=== PATIENT | female | born 2000 | race Caucasian/White ===

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

== ENCOUNTER 2023-03-23 08:00 | Outpatient (CLI) | payer OTHER ==
[2023-03-23 15:49] LABS: BILIRUBIN,URINE NEGATIVE (NEGATIVE); GLUCOSE, URINE (UA) NEGATIVE (NEGATIVE); KETONES,URINE (UA) NEGATIVE (NEGATIVE); LEUKOCYTE ESTERASE, URINE NEGATIVE (NEGATIVE); NITRITE,URINE NEGATIVE (NEGATIVE); OCCULT BLOOD,URINE NEGATIVE (NEGATIVE); PH,URINE 5.5 PH (5.0-7.5); PROTEIN,URINE NEGATIVE (NEGATIVE); UROBILINOGEN,URINE 0.2 (NORMAL) E.U./dL (NORMAL)
[2023-03-23 15:50] LABS: CLARITY,URINE CLOUDY (CLEAR)
[2023-03-23 16:01] LABS: AMORPHOUS SEDIMENT,UR Marked /LPF; BACTERIA,URINE Rare /HPF (None Seen); RBC,URINE None Seen /HPF (0-5); SQUAMOUS EPITHELIAL CELL,UR RARE Squamous (<= Few); WBC,URINE 0-3 /HPF (0-5)
== END 2023-03-23 23:59 | disposition home or self-care (01) ==
LOC: LAB.WC 08:00
PROVIDERS: ATTEND Nurse Practitioner
DX: Z34.90 Encounter for supervision of normal pregnancy, unspecified, unspecified trimester (principal)
CPT/HCPCS: 81001; 87086

== ENCOUNTER 2023-04-10 19:51 | Emergency (ER) | payer OTHER ==
--- NOTE | 2023-04-10 21:08 | ED Physician Documentation ---
History of Present Illness - Stated complaint Stated Complaint: FEMALE - Chief complaint Chief Complaint: General - History obtained from History obtained from: Patient - Additonal information Additional information: The patient comes to the emergency department chief complaint of vaginal bleeding that started today. The patient is 15 weeks , approximately. The patient states it was in the afternoon and that she felt as though she may have to urinate. However, when she went to use the toilet, she noticed that she was having heavy bright red vaginal bleeding. She did not notice any clots or tissue/sac. She states that she soaked 1 pad and that she has another 1 on now and thinks that it is probably getting ready full 2. The patient states she had vague sense of cramping low abdomen/pelvis throughout the day, and has felt more fatigued than usual. Otherwise, she feels as though her has been going fairly well. She had a little bit of spotting a few weeks ago but that resolved quickly on its own. She does have an OB specialist that she has not yet seen, and has an ultrasound scheduled in about a week. She has not yet had any other imaging. The patient does have a history of a miscarriage once before. She states she was about a month at that time and has not had any other pregnancies besides that one. She does note that she and her significant other had intercourse about 3 hours before the bleeding started. However, she did not notice any bleeding right after intercourse. No intensification of the pain. PD PAST MEDICAL HISTORY - Past Surgical History Past Surgical History: No - Present Medications Home Medications: Ambulatory Orders Medication Instructions Recorded Confirmed Azithromycin [Zithromax] 250 mg PO DAILY #6 tablet 11/13/17 - Allergies Allergies/Adverse Reactions: Allergies Allergy/AdvReac Type Severity Reaction Status Date / Time cillins Allergy Mild Rash Uncoded 11/13/17 16:26 - Social History Does the pt smoke?: No Smoking Status: Never smoker Does the pt drink ETOH?: No Does the pt have substance abuse?: No - Immunizations Immunizations are current?: Yes - POLST Patient has POLST: No PD ED PE NORMAL - Vitals Vital signs reviewed: Yes - General General: Alert and oriented X 3, No acute distress, Well developed/nourished - HEENT HEENT: Atraumatic, PERRL, EOMI, Moist mucous membranes - Neck Neck: Supple, no meningeal sign - Cardiac Cardiac: RRR, No murmur, Strong equal pulses - Respiratory Respiratory: No respiratory distress, Clear bilaterally - Abdomen Abdomen: Soft, Other (Mild distention, mild tenderness over low abdomen, worst in suprapubic area. 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 Moderate amount of red blood without clots in vaginal canal. Cervix is firm and os is closed. No uterine or adnexal tenderness. No products of conception in the os or vaginal canal.) - Derm Derm: Warm and dry - Extremities Extremities: No deformity - Neuro Neuro: Alert and oriented X 3 - Psych Psych: Normal mood, Normal affect Results - Vitals Vitals: Oxygen O2 Source Room air - Labs Labs: Laboratory Tests 04/10/23 04/10/23 20:51 21:28 Beta HCG, Quant 61677.5 Urine Color DARK YELLOW Urine Clarity HAZY Urine pH 5.5 Ur Specific [place] 1.020 Urine Protein 30 H Urine Glucose (UA) NEGATIVE Urine Ketones NEGATIVE Urine Occult Blood LARGE H Urine Nitrite NEGATIVE Urine Bilirubin NEGATIVE Urine Urobilinogen 0.2 (NORMAL) Ur Leukocyte Esterase NEGATIVE Urine RBC TNTC H Urine WBC 4-5 Ur Squamous Epith Cells RARE Squamous Urine Bacteria None Seen Ur Microscopic Review INDICATED Urine Culture Comments NOT INDICATED - Rads (name of study) OB US Relevant Findings:: Final report received, See rad report (Viable intrauterine , 14 weeks.) PD Medical Decision Making - ED course Complexity details: reviewed results, re-evaluated patient, considered differential, d/w patient, d/w family ED course: The patient was worked up with quantitative hCG, urinalysis, and OB ultrasound. The ultrasound showed a 14-week 1 day viable intrauterine and a rupturing corpus luteum cyst. No other concerning findings were noted. I discussed with the patient that although it is still possible that she could be in the early end of a miscarriage, the rest of her findings look good and at this point, only time will tell. Her quantitative hCG was 33,625. She does have an ultrasound scheduled in about a week and I have advised her that if she does not notice any improvement in her bleeding at all over the next few days, she should call her OB office for guidance. We have discussed the usual indications for return. Departure - Departure Disposition: Home, Self Care Clinical Impression: Threatened Condition: Stable Instructions: ED Miscarriage Poss Comments: Your ultrasound and hormones look great tonight. You do have a rupturing corpus luteum cyst, which is an ovarian cyst related to the . While this could cause some vaginal bleeding, it may not explain all of the bleeding you are having. At this point in time, your baby looks great and appears to be about 14 weeks size. Most likely, the bleeding will subside on its own, but if you do not notice any improvement at all After the next 3 days, or if you notice that it seems to be getting worse, you should call your OB office and find out what they would like you to do. You should plan to follow- up as scheduled for your official ultrasound on the . At that time, they may also repeat hormone level if you are continuing to bleed. Forms: PCP List Discharge Date/Time: 04/10/23 21:57
[2023-04-10 21:33] LABS: BILIRUBIN,URINE NEGATIVE (NEGATIVE); GLUCOSE, URINE (UA) NEGATIVE (NEGATIVE); KETONES,URINE (UA) NEGATIVE (NEGATIVE); LEUKOCYTE ESTERASE, URINE NEGATIVE (NEGATIVE); NITRITE,URINE NEGATIVE (NEGATIVE); OCCULT BLOOD,URINE LARGE (NEGATIVE); PH,URINE 5.5 PH (5.0-7.5); PROTEIN,URINE 30 mg/dL (NEGATIVE); UROBILINOGEN,URINE 0.2 (NORMAL) E.U./dL (NORMAL)
[2023-04-10 21:34] LABS: CLARITY,URINE HAZY (CLEAR)
[2023-04-10 21:43] LABS: BACTERIA,URINE None Seen /HPF (None Seen); RBC,URINE TNTC /HPF (0-5); SQUAMOUS EPITHELIAL CELL,UR RARE Squamous (<= Few)
[2023-04-10 22:02] VITALS: BP 138/88
--- NOTE | 2023-04-10 22:43 | Ultrasound Report ---
PROCEDURE: OB 14+ Weeks INDICATIONS: 15 wks preg, vag bleed OUTSIDE/PRIOR DATING DATA: Last menstrual period (LMP): 12/20/2022. LMP-based estimated date of delivery (EFRAIN): 09/26/2023. First dating scan (date and location): 04/10/2023. Estimated date of delivery (EFRAIN) from first dating scan: 10/08/2022. TECHNIQUE: Real-time scanning was performed of the fetus, with image documentation and biometric measurements. COMPARISON: None. FINDINGS: General: A single living intrauterine gestation is present. Presentation: Variable Placenta: Placental position is anterior. Amniotic fluid : Appears within normal limits for gestational age. heart rate: 153 beats per minute. Maternal cervical canal: 4.4 cm long; normal length is 2.5 cm or more. biometrics: Biparietal diameter: 2.6 cm, 14 weeks 4 days Head circumference: 10.2 cm, 14 weeks 5 days Abdominal circumference: 17.1 cm, 15 weeks 5 days Femur length: 1.3 cm, 15 weeks 5 days Estimated gestational age from LMP: 15 weeks 6 days. Composite gestational age from present scan: 14 weeks 1 day Estimated weight and percentile: 84 g Measurement variability for biometric dating: +/- 10 days from 12-20 weeks gestation, +/- 2 weeks fro m 20-30 weeks gestation, +/- 3 weeks for 30 weeks gestation or later. IMPRESSION: 1. Single living intrauterine with composite gestational age of 14 weeks 1 day correspondin g to an estimated delivery date of 10/08/2023, discordant with patient's dates by LMP. Reviewed by: Moe Damon MD on 04/10/2023 10:41 PM PDT Approved by: Moe Damon MD on 04/10/2023 10:41 PM PDT Station ID: [id number]
== END 2023-04-10 21:57 | disposition home or self-care (01) ==
LOC: ED 19:51
DX: O20.0 Threatened abortion (principal); Z3A.14 14 weeks gestation of pregnancy
CPT/HCPCS: 36415; 81001; 81003; 84702; 87086; 99283; 99284

== ENCOUNTER 2023-04-17 08:00 | Outpatient (CLI) | payer OTHER ==
[2023-04-17 20:41] LABS: CHLAMYDIA TRACHOMATIS DNA NEGATIVE (NEGATIVE); NEISSERIA GONORRHOEAE DNA NEGATIVE (NEGATIVE); TRICHOMONAS VAGINALIS DNA NEGATIVE (NEGATIVE)
== END 2023-04-17 23:58 | disposition home or self-care (01) ==
LOC: LAB.WC 08:00
PROVIDERS: ATTEND Obstetrics & Gynecology
DX: Z11.3 Encounter for screening for infections with a predominantly sexual mode of transmission (principal)
CPT/HCPCS: 87491; 87591; 87661

== ENCOUNTER 2023-04-17 13:38 | Outpatient (CLI) | payer OTHER ==
[2023-04-17 13:56] LABS: BASOPHILS % (AUTO) 0.3 %; EOSINOPHILS # (AUTO) 0.2 10^3/uL (0.0-0.7); EOSINOPHILS % (AUTO) 1.9 %; HCT - HEMATOCRIT 36.5 % (37.0-47.0); HGB - HEMOGLOBIN 12.6 g/dL (12.0-16.0); LYMPHOCYTES # (AUTO) 2.1 10^3/uL (1.5-3.5); LYMPHOCYTES % (AUTO) 22.7 %; MEAN CORPUSCULAR HEMOGLOBIN 29.5 pg (27.0-31.0); MEAN CORPUSCULAR HGB CONC 34.5 g/dL (32.0-36.0); MEAN CORPUSCULAR VOLUME 85.5 fL (81.0-99.0); MONOCYTES # (AUTO) 0.5 10^3/uL (0.0-1.0); MONOCYTES % (AUTO) 5.4 %; NEUTROPHILS # (AUTO) 6.5 10^3/uL (1.5-6.6); NEUTROPHILS % (AUTO) 69.3 %; PLT - PLATELET COUNT 226 10^3/uL (130-450); RED BLOOD COUNT 4.27 10^6/uL (4.20-5.40); RED CELL DISTRIBUTION WIDTH 12.8 % (12.0-15.0); WHITE BLOOD COUNT 9.4 x10^3/uL (4.8-10.8)
[2023-04-17 13:59] LABS: BILIRUBIN,URINE NEGATIVE (NEGATIVE); GLUCOSE, URINE (UA) NEGATIVE (NEGATIVE); KETONES,URINE (UA) NEGATIVE (NEGATIVE); LEUKOCYTE ESTERASE, URINE NEGATIVE (NEGATIVE); NITRITE,URINE NEGATIVE (NEGATIVE); OCCULT BLOOD,URINE NEGATIVE (NEGATIVE); PH,URINE 6.5 PH (5.0-7.5); PROTEIN,URINE NEGATIVE (NEGATIVE); UROBILINOGEN,URINE 0.2 (NORMAL) E.U./dL (NORMAL)
[2023-04-17 14:47] LABS: BACTERIA,URINE Moderate /HPF (None Seen); CLARITY,URINE CLEAR (CLEAR); RBC,URINE 0-5 /HPF (0-5); SQUAMOUS EPITHELIAL CELL,UR FEW Squamous (<= Few); WBC,URINE 0-3 /HPF (0-5)
[2023-04-18 03:09] LABS: HBsAG SCREEN Negative (Negative)
[2023-04-18 07:10] LABS: HIV SCREEN 4TH GENERATION Non Reactive (Non Reactive)
[2023-04-18 08:09] LABS: HCV AB Non Reactive (Non Reactive)
[2023-04-18 09:09] LABS: VARICELLA-ZOSTER AB IGG 754 index (Immune >165)
[2023-04-19 08:11] LABS: RPR Non Reactive (Non Reactive)
== END 2023-04-17 13:39 | disposition home or self-care (01) ==
LOC: LAB 13:38
PROVIDERS: ATTEND Nurse Practitioner
DX: Z34.90 Encounter for supervision of normal pregnancy, unspecified, unspecified trimester (principal)
CPT/HCPCS: 36415; 81001; 85025; 86592; 86762; 86787; 86803; 86850; 86900; 86901; 87086; 87340; 87389; 87491; 87591; 87661

== ENCOUNTER 2023-05-15 14:53 | Outpatient (CLI) | payer OTHER ==
--- NOTE | 2023-05-15 17:15 | Ultrasound Report ---
PROCEDURE: OB Detailed Eval INDICATIONS: OBESITY OUTSIDE/PRIOR DATING DATA: Last menstrual period (LMP): 12/20/2022. LMP-based estimated date of delivery (EFRAIN): 05/19/2024. First dating scan (date and location): 04/10/2023. Estimated date of delivery (EFRAIN) from first dating scan: 10/08/2022. The below data below was generated using the working EFRAIN of 10/08/2022 TECHNIQUE: Real-time scanning was performed of the fetus, with image documentation and biometric measurements. Endovaginal scanning: None COMPARISON: 04/10/2023 FINDINGS: General: A single living intrauterine gestation is present. Presentation: Breech Placenta: Placental position is anterior, without previa. Additionally, there is a crescentic hypoe chogenicity in the lower uterine segment measuring 7.0 x 1.2 x 4.0 cm, not well Amniotic fluid index: 11.0 cm, 17 percentile for gestational age. heart rate: 100 beats per minute. Maternal cervical canal: 4.3 cm long; normal length is 2.5 cm or more. biometrics: Biparietal diameter: 4.5 cm, 19 week 3 day Head circumference: 16.9 cm, 19 week 3 day Abdominal circumference: 14.2 cm, 19 week 4 day Femur length: 3.0 cm, 19 week 3 day Estimated gestational age from initial scan: 19 week 1 day Composite gestational age from present scan: 19 week 3 day Estimated weight and percentile: 294 g, 64th percentile Measurement variability in biometric dating: +/- 10 days from 12-20 weeks gestation, +/- 2 weeks from 20-30 weeks gestation, +/- 3 weeks at 30 weeks gestation or later. Anatomic survey: Neuro: Ventricles are normal at less than 10 mm. Cisterna magna is normal at 3-11 mm. Cerebellum i s normal in size and morphology. Nuchal skin fold: Normal at less than 6 mm between 14 and 20 weeks gestational age. Face: Not well seen Spine: No evidence for spina bifida. Heart: 4 chamber view and outflow tracts not well seen Diaphragm: Diaphragm is intact. Stomach: Left-sided stomach is present. Kidneys: No hydronephrosis. Normal is less than 5 mm in 2nd trimester, less than 7 mm in 3rd trimester. Cord: 3 vessel cord has orthotopic insertion. Bladder: Normal in size. Extremities: All 4 extremities are visualized. IMPRESSION: Single live intrauterine consistent with 19 week 3 day gestation by current ultrasound. nose and lips, four-chamber heart and ventricular outflow tracts are not well depicted currentl y. Possible subchorionic bleed noted in the posterior lower uterine segment measuring 7.0 x 1.2 x 4.0 cm , not well detected. Consider short-term interval follow-up to reassess Reviewed by: Ziyad Saxena MD on 05/15/2023 4:14 PM [facility] Approved by: Ziyad Saxena MD on 05/15/2023 4:14 PM [facility] Station ID: [id number]
== END 2023-05-15 14:54 | disposition home or self-care (01) ==
LOC: DI 14:53
PROVIDERS: ATTEND Obstetrics & Gynecology
DX: O99.212 Obesity complicating pregnancy, second trimester (principal); Z3A.19 19 weeks gestation of pregnancy

== ENCOUNTER 2023-06-26 13:16 | Outpatient (CLI) | payer BC ==
[2023-06-26 20:10] LABS: HCT - HEMATOCRIT 39.1 % (37.0-47.0); HGB - HEMOGLOBIN 12.9 g/dL (12.0-16.0); MEAN CORPUSCULAR HEMOGLOBIN 29.4 pg (27.0-31.0); MEAN CORPUSCULAR VOLUME 89.1 fL (81.0-99.0); MEAN PLATELET VOLUME 10.6 fL (7.9-10.8); RED BLOOD COUNT 4.39 10^6/uL (4.20-5.40); RED CELL DISTRIBUTION WIDTH 12.7 % (12.0-15.0); WHITE BLOOD COUNT 9.8 x10^3/uL (4.8-10.8)
== END 2023-06-26 13:17 | disposition home or self-care (01) ==
LOC: LAB.S 13:16
PROVIDERS: ATTEND Obstetrics & Gynecology
DX: O99.212 Obesity complicating pregnancy, second trimester (principal)
CPT/HCPCS: 36415; 82950; 85027

== ENCOUNTER 2023-07-17 13:16 | Outpatient (CLI) | payer OTHER ==
--- NOTE | 2023-07-17 15:49 | Ultrasound Report ---
PROCEDURE: OB F/U or Repeat INDICATIONS: OBESITY COMPLICATING OUTSIDE/PRIOR DATING DATA: Last menstrual period (LMP): 12/20/2022. LMP-based estimated date of delivery (EFRAIN): 09/26/2023. First dating scan (date and location): 04/10/2023. Estimated date of delivery (EFRAIN) from first dating scan: 10/08/2022. The below data below was generated using the working EFRAIN of 10/08/2022 TECHNIQUE: Ultrasound of the gravid uterus was performed and recorded. COMPARISON: 05/15/2023 FINDINGS: General: A single live intrauterine gestation is present. Presentation: Cephalic Placenta: Placental position is anterior without previa. Amniotic fluid index: 17.5 cm, 72 percentile for gestational age. heart rate: 150 beats per minute. Maternal cervical canal: 4.1 cm long; normal length is 2.5 cm or more. biometrics: Biparietal diameter: 7.5 cm, 30 week 0 day Head circumference: 27.3 cm, 29 week 6 day Abdominal circumference: 25.5 cm, 29 week 5 day Femur length: 5.4 cm, 28 week 3 day Estimated gestational age by working dates: 28 week 1 day Composite gestational age by current ultrasound: 29 week 4 day Estimated weight and percentile: 1375 g, 82 percentile Measurement variability in biometric dating: +/- 10 days from 12-20 weeks gestation, +/- 2 weeks from 20-30 weeks gestation, +/- 3 weeks at 30 weeks gestation or more. Other: face, nose and lips, orbits, cardiac 4 chamber and outflow views are all normal IMPRESSION: Single live intrauterine consistent with 29 week 4 day gestation by current ultrasound Femur length is slightly delayed at 28 week 3 day nose and lips,. Heart and ventricular outflow tracts are well seen and normal. Normal anatomic survey completed. Possible subchorionic bleed has resolved Reviewed by: Ziyad Saxena MD on 07/17/2023 2:48 PM [facility] Approved by: Ziyad Saxena MD on 07/17/2023 2:48 PM [facility] Station ID: [id number]
== END 2023-07-17 13:17 | disposition home or self-care (01) ==
LOC: DI 13:16
PROVIDERS: ATTEND Obstetrics & Gynecology
DX: O99.213 Obesity complicating pregnancy, third trimester (principal); Z3A.29 29 weeks gestation of pregnancy

== ENCOUNTER 2023-08-14 16:27 | Outpatient (CLI) | payer BC, OTHER ==
--- NOTE | 2023-08-15 10:55 | Ultrasound Report ---
PROCEDURE: OB F/U or Repeat INDICATIONS: OBESITY OUTSIDE/PRIOR DATING DATA: Last menstrual period (LMP): 12/20/2022. LMP-based estimated date of delivery (EFRAIN): 09/26/2023. First dating scan (date and location): 04/10/2023. Estimated date of delivery (EFRAIN) from first dating scan: 10/08/2023. The below data below was generated using the ultrasound EFRAIN of 10/08/2023 TECHNIQUE: Real-time scanning was performed of the fetus, with image documentation and biometric measurements. Endovaginal scanning: Not performed. COMPARISON: None. FINDINGS: General: A single living intrauterine gestation is present. Presentation: Vertex Placenta: Placental position is anterior, without previa. Amniotic fluid index: 16.9 cm, within normal limits for gestational age. heart rate: 140 beats per minute. Maternal cervical canal: 3.5 cm long; normal length is 2.5 cm or more. biometrics: Biparietal diameter: 8.4 cm, 33 weeks 6 days, 87th percentile. Head circumference: 31.59 cm, 35 weeks 3 days, 92 percentile. Abdominal circumference: 30.16 cm, 34 weeks 1 day, 93.5 percentile. Femur length: 6.28 cm, 32 weeks 4 days, 47th percentile. Estimated gestational age from initial scan: 32 weeks 1 day Composite gestational age from present scan: 34 weeks 0 days Estimated weight and percentile: 2274 g, 88th percentile Measurement variability in biometric dating: +/- 10 days from 12-20 weeks gestation, +/- 2 weeks from 20-30 weeks gestation, +/- 3 weeks at 30 weeks gestation or more. Other: Not applicable. IMPRESSION: Single living intrauterine at 32 weeks 1 day, EFRAIN of 10/08/2023. Estimated weight of 2234 g, 80th percentile. biometrics as above. Reviewed by: Cas Morales on 08/15/2023 10:54 AM [facility] Approved by: Cas Morales on 08/15/2023 10:54 AM [facility] Station ID: [id number]
== END 2023-08-14 16:28 | disposition home or self-care (01) ==
LOC: DI 16:27
PROVIDERS: ATTEND Obstetrics & Gynecology
DX: O99.212 Obesity complicating pregnancy, second trimester (principal); Z3A.32 32 weeks gestation of pregnancy

== ENCOUNTER 2023-09-04 10:49 | Outpatient (CLI) | payer BC ==
[2023-09-04 11:25] VITALS: BP 110/66
--- NOTE | 2023-09-04 11:29 | PROCEDURE REPORT ---
- HPI Diagnosis/Indication for NST: Other (obesity) Current EDU 10/08/23 Gestation 35 Weeks and 1 Days 1 Para 0 Vital Signs Temperature 98.2 F 09/04/23 11:06 Heart Rate 120 H 09/04/23 11:06 Respiratory Rate 20 09/04/23 11:06 Blood Pressure 110/66 09/04/23 11:06 Temperature 98.2 F 09/04/23 11:06 Heart Rate 120 H 09/04/23 11:06 Respiratory Rate 20 09/04/23 11:06 Blood Pressure 110/66 09/04/23 11:06 O2 Saturation If not protocol: Oxygen Flow, liters/minute - NST Procedure NST Procedure Start Date 09/04/23 Start Time 10:57 Stop Time 11:25 Vibroacoustic Stimulation Used No Patient States Movement Yes 35+1 weeks, NST for obesity 145, moderate variability, +accels, no decels Reactive NST
== END 2023-09-04 11:35 | disposition home or self-care (01) ==
LOC: WFO 10:49 → FBP 10:52 → WFO 11:35
PROVIDERS: ATTEND Obstetrics & Gynecology Obstetrics
DX: O99.213 Obesity complicating pregnancy, third trimester (principal); Z3A.35 35 weeks gestation of pregnancy
CPT/HCPCS: 59025

== ENCOUNTER 2023-09-10 11:37 | Outpatient (CLI) | payer BC ==
[2023-09-10 11:57] VITALS: O2SAT 99
--- NOTE | 2023-09-10 12:07 | PROCEDURE REPORT ---
- HPI Diagnosis/Indication for NST: Other (obesity) Vital Signs Temperature 97.7 F 09/10/23 11:56 Heart Rate 108 H 09/10/23 11:56 Respiratory Rate 17 09/10/23 11:56 O2 Saturation 99 09/10/23 11:56 Temperature 97.7 F 09/10/23 11:56 Heart Rate 108 H 09/10/23 11:56 Respiratory Rate 17 09/10/23 11:56 Blood Pressure O2 Saturation 99 09/10/23 11:56 If not protocol: Oxygen Flow, liters/minute - NST Procedure NST Procedure Start Time 10:57 Stop Time 11:25 - Results and Plan Findings/Impression: 140 mod tyler + A cells no D cells reactive Plan: ok to D/C home, continue scheduled ANC, precautions and instructions reviewed
== END 2023-09-10 12:15 | disposition home or self-care (01) ==
LOC: WFO 11:37 → FBP 11:48 → WFO 12:15
PROVIDERS: ATTEND Obstetrics & Gynecology
DX: O99.210 Obesity complicating pregnancy, unspecified trimester (principal); Z3A.00 Weeks of gestation of pregnancy not specified
CPT/HCPCS: 59025

== ENCOUNTER 2023-09-14 09:06 | Outpatient (CLI) | payer BC ==
--- NOTE | 2023-09-14 15:36 | Ultrasound Report ---
PROCEDURE: OB F/U or Repeat INDICATIONS: OBSEITY OUTSIDE/PRIOR DATING DATA: Last menstrual period (LMP): 12/20/2022. LMP-based estimated date of delivery (EFRAIN): 09/26/2023. First dating scan (date and location): 04/10/2023. Estimated date of delivery (EFRAIN) from first dating scan: 10/08/2023. The below data below was generated using the ultrasound EFRAIN of 10/08/2023 TECHNIQUE: Real-time scanning was performed of the fetus, with image documentation and biometric measurements. Endovaginal scanning: Not performed. COMPARISON: OB ultrasound 08/14/2023. FINDINGS: General: A single living intrauterine gestation is present. Presentation: Vertex Placenta: Placental position is anterior, without previa. Amniotic fluid index: 11.7 cm, within normal limits for gestational age. heart rate: 129 beats per minute. Maternal cervical canal: 3.9 cm long; normal length is 2.5 cm or more. biometrics: Biparietal diameter: 9.24 cm, 37 weeks 4 days, 85th percentile Head circumference: 33.9 cm, 39 weeks 0 days, 79th percentile Abdominal circumference: 34.7 cm, 38 weeks 4 days, 97th percentile Femur length: 7.14 cm, 36 weeks 4 days, 47th percentile Estimated gestational age from initial scan: 36 weeks 4 days Composite gestational age from present scan: 38 weeks 0 days Estimated weight and percentile: 3386 g, 89th percentile Measurement variability in biometric dating: +/- 10 days from 12-20 weeks gestation, +/- 2 weeks from 20-30 weeks gestation, +/- 3 weeks at 30 weeks gestation or more. Other: Not applicable. IMPRESSION: 1.Single live intrauterine with interval growth. 2.Estimated weight is 3386 g, 89th percentile for gestational age. Abdominal circumference is a t the 97th percentile for gestational age. 3.Amniotic fluid index is normal at 11.7 cm. Reviewed by: Toro Vela MD on 09/14/2023 3:35 PM PST Approved by: Toro Vela MD on 09/14/2023 3:35 PM PST Station ID: [id number]
== END 2023-09-14 09:07 | disposition home or self-care (01) ==
LOC: DI 09:06
PROVIDERS: ATTEND Obstetrics & Gynecology
DX: O99.213 Obesity complicating pregnancy, third trimester (principal); Z3A.38 38 weeks gestation of pregnancy

== ENCOUNTER 2023-09-18 10:54 | Outpatient (CLI) | payer BC ==
[2023-09-18 11:15] VITALS: BP 112/69
--- NOTE | 2023-09-18 11:30 | PROCEDURE REPORT ---
- HPI Diagnosis/Indication for NST: Other (obesity in ) Vital Signs Temperature 97.9 F 09/18/23 11:08 Temperature 97.9 F 09/18/23 11:12 Heart Rate 109 H 09/18/23 11:12 Respiratory Rate 15 09/18/23 11:12 Blood Pressure 112/69 09/18/23 11:12 O2 Saturation If not protocol: Oxygen Flow, liters/minute - NST Procedure NST Procedure Start Time 11:43 Stop Time 12:08 NST reviewed in real time. baseline 150. moderate variability. acels. no decels. - Results and Plan Findings/Impression: reactive NST Plan: care as scheduled.
== END 2023-09-18 11:40 | disposition home or self-care (01) ==
LOC: WFO 10:54 → FBP 10:58 → WFO 11:40
PROVIDERS: ATTEND Obstetrics & Gynecology
DX: O99.213 Obesity complicating pregnancy, third trimester (principal); Z3A.00 Weeks of gestation of pregnancy not specified
CPT/HCPCS: 59025

== ENCOUNTER 2023-09-20 08:00 | Outpatient (CLI) | payer BC | END 2023-09-20 08:01 | disposition home or self-care (01) | LOC: LAB.WC 08:00 | PROVIDERS: ATTEND Obstetrics & Gynecology | DX: O09.93 Supervision of high risk pregnancy, unspecified, third trimester (principal) | CPT/HCPCS: 87081; 87181; 87797 ==

== ENCOUNTER 2023-09-25 10:56 | Outpatient (CLI) | payer BC ==
[2023-09-25 11:14] VITALS: BP 105/74
--- NOTE | 2023-09-25 12:37 | PROCEDURE REPORT ---
- HPI Current EDU 10/08/23 Gestation 38 Weeks and 1 Days 2 Para 0 Vital Signs Temperature 98.2 F 09/25/23 11:03 Heart Rate 109 H 09/25/23 11:03 Respiratory Rate 18 09/25/23 11:03 Blood Pressure 105/74 09/25/23 11:03 Temperature 98.2 F 09/25/23 11:03 Heart Rate 109 H 09/25/23 11:03 Respiratory Rate 18 09/25/23 11:03 Blood Pressure 105/74 09/25/23 11:03 O2 Saturation If not protocol: Oxygen Flow, liters/minute - NST Procedure NST Procedure Start Date 09/25/23 Start Time 11:07 Stop Time 11:30 Vibroacoustic Stimulation Used No Patient States Movement Yes - Results and Plan Plan: Patient is a 23-year-old -0-1-0 at 38 weeks 1 day gestation here for scheduled NST. NST Performed 09/25/2023 NST Read 09/25/2023 FHT: 135 bpm baseline, moderate variability, accelerations present, no decelerations. Reactive NST [place]: Quiescent Diagnosis 38 weeks gestation Obesity complicating Continue with scheduled NST.
== END 2023-09-25 11:40 | disposition home or self-care (01) ==
LOC: WFO 10:56 → FBP 10:59 → WFO 11:40
PROVIDERS: ATTEND Obstetrics & Gynecology
DX: O99.213 Obesity complicating pregnancy, third trimester (principal); Z3A.38 38 weeks gestation of pregnancy
CPT/HCPCS: 59025

== ENCOUNTER 2023-10-02 10:54 | Inpatient (IN) | payer BC ==
[2023-10-02] MEDS ORDERED: OXYTOCIN 10 UNIT/ML VIAL IM PRN (12:18)
[2023-10-02] MEDS ORDERED: hydrALAZINE INJ 20 MG/ML VIAL IVP PRN ×2 (12:18)
[2023-10-02] MEDS ORDERED: TRANEXAMIC ACID IN NACL 1,000 MG/100 ML BAG IV PRN (12:18)
[2023-10-02] MEDS ORDERED: lidocaine 1% 20 ML MDV ID PRN (12:18)
[2023-10-02] MEDS ORDERED: NIFEdipine 10 MG CAPSULE PO PRN (12:18)
[2023-10-02] MEDS ORDERED: miSOPROStoL 200 MCG TABLET PR PRN (12:18)
[2023-10-02] MEDS ORDERED: miSOPROStoL 200 MCG TABLET BC PRN (12:18)
[2023-10-02] MEDS ORDERED: LABETALOL 20 MG/4 ML SYRINGE IVP PRN ×3 (12:18)
[2023-10-02] MEDS ORDERED: SODIUM CHLORIDE FLUSH 0.9% 10 ML SYRINGE IVP PRN (12:18)
[2023-10-02] MEDS ORDERED: fentaNYL 100 MCG/2 ML VIAL IVP PRN (12:18)
[2023-10-02] MEDS ORDERED: CARBOPROST TROMETHAMINE 250 MCG/ML AMP IM PRN (12:18)
[2023-10-02] MEDS ORDERED: ceFAZolin (2G) 2 GM in SODIUM CHLORIDE 0.9% MINIBAG 100 ML IV ONE (12:18)
[2023-10-02] MEDS ORDERED: TERBUTALINE 1 MG/ML VIAL SUBQ PRN (12:18)
[2023-10-02] MEDS ORDERED: OXYTOCIN/SODIUM CHLORIDE 500 ML IV PRN (12:18)
[2023-10-02] MEDS ORDERED: METHYLERGONOVINE 0.2 MG/ML VIAL IM PRN (12:18)
[2023-10-02 12:20] LABS: BASOPHILS % (AUTO) 0.3 %; EOSINOPHILS # (AUTO) 0.1 10^3/uL (0.0-0.7); EOSINOPHILS % (AUTO) 1.3 %; HCT - HEMATOCRIT 37.6 % (37.0-47.0); HGB - HEMOGLOBIN 12.7 g/dL (12.0-16.0); LYMPHOCYTES % (AUTO) 18.7 %; MEAN CORPUSCULAR HEMOGLOBIN 29.4 pg (27.0-31.0); MEAN CORPUSCULAR HGB CONC 33.8 g/dL (32.0-36.0); MONOCYTES # (AUTO) 0.8 10^3/uL (0.0-1.0); NEUTROPHILS # (AUTO) 7.7 10^3/uL (1.5-6.6); NEUTROPHILS % (AUTO) 71.8 %; PLT - PLATELET COUNT 250 10^3/uL (130-450); RED BLOOD COUNT 4.32 10^6/uL (4.20-5.40); RED CELL DISTRIBUTION WIDTH 13.5 % (12.0-15.0); WHITE BLOOD COUNT 10.7 x10^3/uL (4.8-10.8)
[2023-10-02] MEDS: miSOPROStoL 100 MCG TABLET VG SCH ×3 (12:48→20:50)
--- NOTE | 2023-10-02 15:31 | ANESTHESIA ---
Pre-Anesthesia VS, & Labs - Diagnosis labor induction - Procedure labor epidural Vital Signs: Temp Pulse Resp BP Pulse Ox O2 Flow Rate 36.6 C 109 H 16 98/79 10/02/23 12:59 10/02/23 12:59 10/02/23 12:59 10/02/23 12:59 Height: 5 ft 1 in Weight (kg): 117.027 kg Body Mass Index: 48.7 BMI Classification: Morbidly Obese - NPO Other - Is Patient ?: Yes - Lab Results Current Lab Results: Laboratory Tests 10/02/23 11:50: WBC 10.7, RBC 4.32, Hgb 12.7, Hct 37.6, MCV 87.0, MCH 29.4, MCHC 33.8, RDW 13.5, Plt Count 250, MPV 11.0 H, Neut # (Auto) 7.7 H, Lymph # (Auto) 2.0, Glenn # (Auto) 0.8, Eos # (Auto) 0.1, Baso # (Auto) 0.0, Absolute Nucleated RBC 0.00, Nucleated RBC % 0.0 10/02/23 11:50: Blood Type O POSITIVE, Antibody Screen NEGATIVE Fish Bones: 10/02/23 11:50 Home Medications and Allergies Active Medications Carboprost Tromethamine (Carboprost Tromethamine 250 Mcg/Ml Amp) 250 mcg IM .ONCE PRN PRN Reason: Hemorrhage Fentanyl (Fentanyl 100 Mcg/2 Ml Vial) 50 mcg IVP Q1H PRN PRN Reason: Severe Pain (score 7-10) Hydralazine HCl (Hydralazine Inj 20 Mg/Ml Vial) 5 - 10 mg IVP Q20M PRN; Protocol PRN Reason: SBP> or= 160 OR DBP> or= 110 Hydralazine HCl (Hydralazine Inj 20 Mg/Ml Vial) 10 mg IVP .ONCE PRN; Protocol PRN Reason: SBP> or= 160 OR DBP> or= 110 Lactated Ringer's (Lr) 500 mls @ 999 mls/hr IV PRN PRN PRN Reason: Blood Pressure Oxytocin/Sodium Chloride (Pitocin/Sodium Chloride) 500 mls @ 999 mls/hr IV PRN PRN; Protocol PRN Reason: POST- HEMORR PREVENTION Tranexamic Acid (Tranexamic 1,000 Mg/100ml-Nacl) 1,000 mg in 100 mls @ 600 mls/hr IV Q30M PRN PRN Reason: EBL >1200mL and within 3hr Labetalol HCl (Labetalol 20 Mg/4 Ml Syringe) 20 - 80 mg IVP Q10M PRN; Protocol PRN Reason: SBP> or= 160 OR DBP> or= 110 Labetalol HCl (Labetalol 20 Mg/4 Ml Syringe) 20 mg IVP .ONCE PRN; Protocol PRN Reason: SBP> or= 160 OR DBP> or= 110 Labetalol HCl (Labetalol 20 Mg/4 Ml Syringe) 20 - 40 mg IVP Q10M PRN; Protocol PRN Reason: SBP> or= 160 OR DBP> or= 110 Lidocaine HCl (Lidocaine 1% 20 Ml Mdv) 20 ml ID .ONCE PRN PRN Reason: PERINEAL REPAIR Stop: 10/05/23 12:18 Methylergonovine Maleate (Methylergonovine 0.2 Mg/Ml Vial) 0.2 mg IM .ONCE PRN PRN Reason: Hemorrhage Misoprostol (Misoprostol 200 Mcg Tablet) 600 mcg BC .ONCE PRN PRN Reason: Hemorrhage Misoprostol (Misoprostol 200 Mcg Tablet) 800 mcg ND .ONCE PRN PRN Reason: Hemorrhage Misoprostol (Misoprostol 100 Mcg Tablet) 25 mcg VG Q4H DUSTY Last Admin: 10/02/23 12:48 Dose: 25 mcg Nifedipine (Nifedipine 10 Mg Capsule) 10 - 20 mg PO Q20M PRN; Protocol PRN Reason: SBP> or= 160 OR DBP> or= 110 Oxytocin (Oxytocin 10 Unit/Ml Vial) 10 unit IM .ONCE PRN PRN Reason: Step One if no IV access. Sodium Chloride (Sodium Chloride Flush 0.9% 10 Ml Syringe) 10 ml IVP PRN PRN PRN Reason: NEEDED PER PROVIDER ORDERS Sodium Chloride (Sodium Chloride Flush 0.9% 10 Ml Syringe) 10 ml IVP Q8H [facility] Terbutaline Sulfate (Terbutaline 1 Mg/Ml Vial) 0.25 mg SUBQ .ONCE PRN PRN Reason: Tachystole Allergies/Adverse Reactions: Allergies Allergy/AdvReac Type Severity Reaction Status Date / Time cillins Allergy Mild Rash Uncoded 11/13/17 16:26 Anes History & Medical History - Anesthetic History Anesthesia Complications: reports: No previous complications (wisdom teeth with sedation only) - Medical History Cardiovascular: reports: None Pulmonary: reports: Asthma Urinary: reports: None Smoking Status: Never smoker History of Cancer?: No Exam General: Alert, Oriented x3, Cooperative Dental: WNL Mouth Opening: Greater than 4 Fingerbreadths Neck Mobility: Normal Mallampati classification: II Thyromental Distance: greater than 6 cm Respiratory: Lungs clear, Decreased breath sounds Cardiovascular: Regular rate Plan Anesthesia Type: Epidural Consent for Procedure(s) Verified and Reviewed: Yes Code Status: Attempt Resuscitation ASA classification: 3-Severe systemic disease Is this case an emergency?: No
[2023-10-02] MEDS: LACTATED RINGERS 1,000 ML IV PRN (17:51)
--- NOTE | 2023-10-02 20:40 | HISTORY & PHYSICAL EXAMINATION ---
Admit History - Smoking Status: Never smoker - HPI Current EDU 10/02/23 Gestation 40 Weeks and 0 Days 2 Vital Signs Temperature 98.3 F 10/02/23 11:19 Heart Rate 121 H 10/02/23 11:19 Respiratory Rate 18 10/02/23 11:19 Blood Pressure 122/80 10/02/23 11:19 Temperature 98.1 F 10/02/23 17:18 Heart Rate 108 H 10/02/23 17:18 Respiratory Rate 18 10/02/23 17:18 Blood Pressure 123/69 10/02/23 17:18 O2 Saturation 98 10/02/23 17:18 If not protocol: Oxygen Flow, liters/minute - NST Procedure NST Procedure Start Time 11:07 Stop Time 11:30 Meds/Allgy - Home Medications Home Medications: Ambulatory Orders Medication Instructions Recorded Confirmed Azithromycin [Zithromax] 250 mg PO DAILY #6 tablet 11/13/17 - Allergies Allergies/Adverse Reactions: Allergies Allergy/AdvReac Type Severity Reaction Status Date / Time cillins Allergy Mild Rash Uncoded 11/13/17 16:26 Physical - Abdominal Exam Vital Signs: Temp Pulse Resp BP Pulse Ox O2 Flow Rate 98.1 F 108 H 18 123/69 98 10/02/23 17:18 10/02/23 17:18 10/02/23 17:18 10/02/23 17:18 10/02/23 17:18
--- NOTE | 2023-10-02 20:48 | HISTORY & PHYSICAL EXAMINATION ---
History and Physical - History and Physical HPI: Pt is here for IOL scheduled for Monday 10/02. Discussed with pt IOL process and what to expect. Allergies: Allergies Reviewed: Done AMOXICILLIN (AMOXICILLIN) (Critical) PENICILLIN (PENICILLIN V POTASSIUM) (Critical) Medications: Meds Reviewed: Done * Electric Breast Pump Use 1 device as directed as directed USE TO EXPRESS MILK ACCORDING TO BABY'S NEEDS Z39.1 EFRAIN 10/11/2023 * vitamin * albuterol sulfate Problems: Encounter for screening for Streptococcus B (GIJ16-K47.85) Degenerative disc disease (ICD-722.6) (HJW51-X94.80) Supervision high risk , third trimester (ICD-V23.9) (KXI86-Q35.93) Leg pain, right (ICD-729.5) (JSP25-I36.604) Back pain (ICD-724.5) (QHL67-E52.9) Obesity complicating , second trimester (ICD-649.13) (GJA79-N50.212) Asthma, intermittent, mild (ICD-493.90) (ATG31-C87.20) Emotional AND/OR mental disease in mother complicating , second trimester (ICD-648.43) (WGZ02-E89.342) Screening for std (ICD-V74.5) (NDO04-D80.3) Past Medical History: Depression/anxiety Asthma Past Surgical History: Denies last ultrasound: FINDINGS: General: A single living intrauterine gestation is present. Presentation: Vertex Amniotic fluid index: 11.7 cm, within normal limits for gestational age. heart rate: 129 beats per minute. Maternal cervical canal: 3.9 cm long; normal length is 2.5 cm or more. biometrics: Biparietal diameter: 9.24 cm, 37 weeks 4 days, 85th percentile Head circumference: 33.9 cm, 39 weeks 0 days, 79th percentile Abdominal circumference: 34.7 cm, 38 weeks 4 days, 97th percentile Femur length: 7.14 cm, 36 weeks 4 days, 47th percentile Estimated gestational age from initial scan: 36 weeks 4 days Composite gestational age from present scan: 38 weeks 0 days Estimated weight and percentile: 3386 g, 89th percentile Measurement variability in bionnetric dating: +/- 10 days from 12-20 weeks gestation, +/- 2 weeks from 20-30 weeks gestation, +1- 3 weeks at 30 weeks gestation or more. Other: Not applicable. IMPRESSION: 09/14/2023 3:39PM (GMT-08:00) Vital Signs: Patient Profile: 23 Years Old Female Height: 61 inches Weight: 256.8 pounds BMI: 48.70 BP sittin / 84 Vitals Entered By: Pauly Jurado RN (September 27, 2023 11:58 AM) Meds Reviewed: Done Allergies Reviewed: Done Flowsheet View for Follow-up Visit Estimated weeks of gestation: 38 11/22 Weight: 256.8 Blood pressure: 108 / 84 Fundal height: 43 FHR: 140 Vaginal bleeding: no Vaginal discharge: no activity: yes Labor symptoms: no Taking vits? Y Smoking: n/a Next visit: 1 wk Comment: Patient has a feelings of a "vaginal spasm" when she urinates. Is not painful or persistent. Just a strange feeling. Induction of labor plan for 10/02/2023. IOL consent signed today.-JAW LMP: 12/20/22 EFRAIN by LMP: 09/26/23 US: 04/10/2023 @ 14+1 NOT c/w LMP Final EFRAIN: By US 10/08/2023 ANC c/b: 1. essential prime 2. H/O DEPRESSION / ANXIETY not on meds, given [place] children's list of 99 coping mechanisms does not have a counselor - is "very shy" so hasn't had successful counseling in the past discussed FMLA / disability leave in [facility]. 3. Initial BMI 41. start weekly NSTs at 36 weeks growth U/S at 32, 36 weeks. 08/14/23- EFW 227g 88% total weight gain: 23# not on ASA 4. Asthma on albuterol doing well. 5. [place]. Tums occasionally and working well. Discussed preventative if worsening. 6. Back and right leg pain. Quit work. WPFL form filled out. Referred to PT. appointment today 09/06 -Degenerative disc disease: Will meet with anesthesia during one of her NSTs Pre- Weight:219.0 BMI: 41.53 Blood type: O+ Antibody: negative CBC: PLT 226 HCT 36.5 HGB 12.6 RUB: immune VZV: immune HBsAg: negative HepC: N-R RPR/AB-EIA: N-R HIV: N-R PAP: due GC/CT:negative HSV: oral HSV Genetic testing: declined Covid: virus in February 2023 Flu: declines RSV- 09/06/23 FAS: Heart and facial profile not well visualized;complete Placenta: anterior w/o previa Cord: 3VC ELIAS: 11.0 cm EFW: 294g, 64thile 07/17/23 US- Anatomy all normal 50gm OGCT: 115 TDAP: Given 07/10/2023 Breast Pump: 07/10/2023 3rd trimester HBG 12.9; HCT 39.1 PLT 260 GBS: 09/20/2023 Delivery plan:IOL on 10/02/2023 consent signed 09/27/2023 Contraception: POP ROS: no headache, nausea. baby moving well. no vaginal bleeding, rom. exam today: VSS cervix with first check 1 by RN 1 cm. Impression & Recommendations: Problem # 1: Supervision high risk , third trimester (ICD-V23.9) (IVX68-W98.93) plan induction of labor 10/02 for obesity, lga. AC is quite large. consents signed 09/27/23 induction process reviewed. will start with miso vaginally. 2. + GBS with PCN allergy. will give her Ancef for prophylaxis. not susceptible to Clinda.
--- NOTE | 2023-10-02 21:11 | PROVIDER PROGRESS NOTE ---
Subjective - Prog Note Date Prog Note Date: 10/02/23 - Subjective Subjective: TC from RN. She is 2 cm. still high. miso #3 placed. FHT reviewed and is category 1. looks great. Objective - Vital Signs/Intake & Output Reviewed Vital Signs: Yes Vital Signs: Vital Signs x48h Temp Pulse Resp BP Pulse Ox 10/02/23 17:18 98.1 F 108 H 18 123/69 98 - Lab Results Fish Bones: 10/02/23 11:50 Other Labs: Lab Results x24hrs 10/02/23 10/02/23 Range/Units 11:50 11:50 WBC 10.7 (4.8-10.8) x10^3/uL RBC 4.32 (4.20-5.40) 10^6/uL Hgb 12.7 (12.0-16.0) g/dL Hct 37.6 (37.0-47.0) % MCV 87.0 (81.0-99.0) fL MCH 29.4 (27.0-31.0) pg MCHC 33.8 (32.0-36.0) g/dL RDW 13.5 (12.0-15.0) % Plt Count 250 (130-450) 10^3/uL MPV 11.0 H (7.9-10.8) fL Neut # (Auto) 7.7 H (1.5-6.6) 10^3/uL Lymph # (Auto) 2.0 (1.5-3.5) 10^3/uL [place] # (Auto) 0.8 (0.0-1.0) 10^3/uL Eos # (Auto) 0.1 (0.0-0.7) 10^3/uL Baso # (Auto) 0.0 (0.0-0.1) 10^3/uL Absolute Nucleated RBC 0.00 x10^3/uL Nucleated RBC % 0.0 /100WBC Blood Type O POSITIVE Antibody Screen NEGATIVE Assessment/Plan - Problem List (1) Encounter for induction of labor Impression: if able, one more miso. then pitocin in am. baby tolerating well. (2) GBS (group B Streptococcus carrier), +RV culture, currently Impression: Ancef when in labor. PCN allergy is hives when she was a small child. no pcn since. (3) LGA (large for gestational age) fetus affecting mother, antepartum Impression: will not do operative vaginal delivery given large AC. Qualifiers: Fetus number: single or unspecified fetus Qualified Code(s): O36.60X0 - Maternal care for excessive growth, unspecified trimester, not applicable or unspecified
[2023-10-03] MEDS: miSOPROStoL 100 MCG TABLET VG SCH (01:35)
[2023-10-03] MEDS ORDERED: ZOLPIDEM 5 MG TABLET PO PRN (02:24)
[2023-10-03] MEDS: LACTATED RINGERS 1,000 ML IV PRN (05:23)
[2023-10-03] MEDS ORDERED: OXYTOCIN/SODIUM CHLORIDE 500 ML IV SCH (05:31)
[2023-10-03] MEDS ORDERED: LACTATED RINGERS 1,000 ML IV SCH ×2 (06:00→23:00)
[2023-10-03] MEDS ORDERED: ceFAZolin 1 GM in SODIUM CHLORIDE 0.9% MINIBAG 100 ML IV SCH (06:00)
[2023-10-03] MEDS ORDERED: ceFAZolin (2G) 2 GM in SODIUM CHLORIDE 0.9% MINIBAG 100 ML IV ONE (09:00)
[2023-10-03] MEDS ORDERED: ONDANSETRON 4 MG/2 ML VIAL IVP PRN ×4 (09:18→22:57)
[2023-10-03] MEDS ORDERED: ROPIVACAINE 0.2% 200 MG/100 ML BAG EP ONE (09:28)
[2023-10-03] MEDS ORDERED: LIDOCAINE 2%-EPI 1:100000 20 ML MDV ONE (09:39)
[2023-10-03] MEDS ORDERED: diphenhydrAMINE INJ 50 MG/ML VIAL IVP PRN ×2 (10:32→22:57)
[2023-10-03] MEDS ORDERED: ROPIVACAINE 0.2% 200 MG/100 ML BAG EP PRN (10:32)
[2023-10-03] MEDS ORDERED: METOCLOPRAMIDE 10 MG/2 ML VIAL IVP PRN ×3 (10:32→22:57)
[2023-10-03] MEDS ORDERED: LACTATED RINGERS 500 ML IV ONE (10:32)
[2023-10-03] MEDS ORDERED: ePHEDrine 50 MG/ML VIAL IVP PRN ×3 (10:32→22:57)
[2023-10-03] MEDS ORDERED: NALBUPHINE 10 MG/ML AMP IVP PRN ×2 (10:32→22:57)
[2023-10-03] MEDS ORDERED: NALOXONE 0.4 MG/ML VIAL IVP PRN ×4 (10:32→22:57)
[2023-10-03] MEDS: SODIUM CHLORIDE FLUSH 0.9% 10 ML SYRINGE IVP SCH (11:46)
--- NOTE | 2023-10-03 13:16 | PROVIDER PROGRESS NOTE ---
Subjective - Prog Note Date Prog Note Date: 10/03/23 Prog Note Time: 13:14 - Subjective Subjective: comfortable with epidural. cervix 7-8/100/0 station. top of head was moulded to a small cervix. Objective - Vital Signs/Intake & Output Reviewed Vital Signs: Yes Vital Signs: bp < 140/90 Intake & Output: Intake & Output 09/30/23 10/01/23 10/02/23 10/03/23 23:59 23:59 23:59 23:59 Intake Total 500 1311.084 Balance 500 1311.084 - Lab Results Fish Bones: 10/02/23 11:50 Other Labs: Lab Results x24hrs 10/02/23 Range/Units 11:50 Blood Type O POSITIVE Antibody Screen NEGATIVE Assessment/Plan - Problem List (1) Encounter for induction of labor Impression: making great progress in her labor. pitocin at 3 mu. hope for later today (3) LGA (large for gestational age) fetus affecting mother, antepartum Qualifiers: Fetus number: single or unspecified fetus Qualified Code(s): O36.60X0 - Maternal care for excessive growth, unspecified trimester, not applicable or unspecified
--- NOTE | 2023-10-03 13:29 | HISTORY & PHYSICAL EXAMINATION ---
PMH/PSH - Past Medical History Cardiovascular: positive: None Respiratory: positive: Asthma : positive: None MRSA Hx?: No Social & Family Hx - Social History Does the pt smoke?: No Smoking Status: Never smoker Does the pt drink ETOH?: No Does the pt have substance abuse?: No - POLST Patient has POLST: No Meds/Allgy - Home Medications Home Medications: Ambulatory Orders Medication Instructions Recorded Confirmed Azithromycin [Zithromax] 250 mg PO DAILY #6 tablet 11/13/17 - Allergies Allergies/Adverse Reactions: Allergies Allergy/AdvReac Type Severity Reaction Status Date / Time cillins Allergy Mild Rash Uncoded 11/13/17 16:26 Results - Lab Results Fish Bones: 10/02/23 11:50 Other Lab Results: Lab Results x24hrs 10/02/23 Range/Units 11:50 Blood Type O POSITIVE Antibody Screen NEGATIVE Impression/Plan - Problem List Problem List: pateint admitted for labor induction. she will be discharged or transferred with 96 hours.
--- NOTE | 2023-10-03 16:42 | PROVIDER PROGRESS NOTE ---
Subjective - Prog Note Date Prog Note Date: 10/03/23 Prog Note Time: 16:41 - Subjective Subjective: no change in how she feels. cervix still 9 cm and baby still 0 station. contractions q 3-5 min. pitocin increaseing. Objective - Vital Signs/Intake & Output Intake & Output: Intake & Output 09/30/23 10/01/23 10/02/23 10/03/23 23:59 23:59 23:59 23:59 Intake Total 500 1311.084 Balance 500 1311.084 - Lab Results Fish Bones: 10/02/23 11:50 Assessment/Plan - Problem List (3) LGA (large for gestational age) fetus affecting mother, antepartum Qualifiers: Fetus number: single or unspecified fetus Qualified Code(s): O36.60X0 - Maternal care for excessive growth, unspecified trimester, not applicable or unspecified
[2023-10-03] MEDS ORDERED: CITRIC ACID/SODIUM CITRATE 15 ML UDC PO ONE ×2 (20:39→20:42)
--- NOTE | 2023-10-03 20:53 | PROVIDER PROGRESS NOTE ---
Progress Note baby's head has come down some to + 1 station. Baby is OP. There is still some cervix to right when head is facing. I had Gris push to try to get it out of the way and move baby and nothing happened. recommended that we proceed with c section. c section process, risks discussed. consents signed. will proceed. baby stil with category 1 tracing.
[2023-10-03] MEDS ORDERED: ACETAMINOPHEN 1,000 MG/100 ML 1,000 MG/100 ML BAG IV ONE ×2 (21:00→21:47)
[2023-10-03] MEDS ORDERED: miSOPROStoL 200 MCG TABLET ONE (21:38)
[2023-10-03] MEDS ORDERED: CARBOPROST TROMETHAMINE 250 MCG/ML AMP IM ONE (21:38)
[2023-10-03] MEDS ORDERED: METHYLERGONOVINE 0.2 MG/ML VIAL ONE (21:38)
[2023-10-03] MEDS ORDERED: MORPHINE PF 5 MG/10 ML VIAL ONE (21:41)
[2023-10-03] MEDS ORDERED: fentaNYL 100 MCG/2 ML VIAL ONE ×2 (21:42→22:02)
[2023-10-03] MEDS ORDERED: KETAMINE 200 MG/20 ML VIAL ONE (21:43)
[2023-10-03] MEDS ORDERED: LIDOCAINE-PF 2% 10 ML AMP SUBQ ONE (21:46)
[2023-10-03] MEDS ORDERED: OXYTOCIN 10 UNIT/ML VIAL ONE (21:47)
[2023-10-03] MEDS ORDERED: ceFAZolin 1 GM VIAL ONE (21:47)
[2023-10-03] MEDS ORDERED: ePHEDrine 50 MG/ML VIAL IVP ONE (21:47)
[2023-10-03] MEDS ORDERED: ONDANSETRON 4 MG/2 ML VIAL ONE (21:47)
[2023-10-03] MEDS ORDERED: HYDROmorphone 1 MG/ML CARPUJECT ONE (22:24)
[2023-10-03] MEDS ORDERED: KETOROLAC 30 MG/ML VIAL ONE ×2 (22:34)
[2023-10-03] MEDS ORDERED: LACTATED RINGERS 1,000 ML IV ONE (22:45)
[2023-10-03] MEDS ORDERED: diphenhydrAMINE 25 MG CAPSULE PO PRN (22:48)
[2023-10-03] MEDS ORDERED: SIMETHICONE CHEW 80 MG TABLET PO PRN (22:48)
[2023-10-03] MEDS ORDERED: METOCLOPRAMIDE 10 MG TABLET PO PRN (22:48)
[2023-10-03] MEDS ORDERED: OXYTOCIN/SODIUM CHLORIDE 500 ML IV PRN (22:48)
[2023-10-03] MEDS ORDERED: oxyCODONE 5 MG TABLET PO PRN (22:48)
[2023-10-03] MEDS ORDERED: CALCIUM CARBONATE CHEW 500 MG TABLET PO PRN (22:48)
[2023-10-03] MEDS ORDERED: MORPHINE 2 MG/ML CARPUJECT IVP PRN (22:55)
[2023-10-03] MEDS ORDERED: HYDROmorphone 0.5 MG/0.5 ML SYRINGE IVP PRN (22:55)
[2023-10-03] MEDS ORDERED: ATROPINE ABBOJECT 1 MG/10 ML SYRINGE IVP PRN (22:55)
[2023-10-03] MEDS ORDERED: fentaNYL 100 MCG/2 ML VIAL IVP PRN (22:55)
[2023-10-03] MEDS ORDERED: MORPHINE PF 5 MG/10 ML VIAL EP ONE (22:57)
--- NOTE | 2023-10-03 23:04 | ANESTHESIA POST OP EVALUATION ---
Anesthesia Post Eval - Post Anesthesia Eval Vitals: Last Vital Signs Temp 37.2 C 10/03/23 23:00 Pulse 102 H 10/03/23 23:00 Resp 18 10/03/23 23:00 BP 137/74 H 10/03/23 23:00 Pulse Ox 98 10/03/23 23:00 O2 Flow Rate CV Function Including HR & BP: Stable Pain Control: Satisfactory Nausea & Vomiting: Negative Mental Status: Baseline Respiratory Status: Airway Patent Hydration Status: Satisfactory Anesthesia Complications: None
--- NOTE | 2023-10-03 23:37 | OPERATIVE REPORT ---
Operative Report - General Admit Date: 10/02/23 Procedure Date: 10/03/23 Planned Procedure: low transverse c section Pre-Op Diagnosis: failure to progress in labor Procedure Performed: low transverse c section Post Op Diagnosis: Cephalopelvic disproportion - Procedure Note Primary Surgeon: Ericka Mckinley MD Secondary Surgeon: ROSS Luna Anesthesia Provider: Shruthi Lugo CRNA Anesthesia Technique: Epidural Pathology: none IV Fluids (mL): 1,500 Estimated Blood Loss (mL): 800 Urine Output (mL): 100 (bloody before the case, better after.) Indications: 9 cm for many hours. baby descended but the small lip of cervix anteriorly never resolved. baby was OP, unable to rotate. Findings: Live male infant with Apgars for 8/8. Weighing 8lb 8 oz. Uterus appeared normal. tubes Normal. Ovaries generous size consistent with pcos. Complications: none - Other Other Information/Narrative: Patient laboring with miso x 3 then pitocin. Progress to 5 cm and got epidural. Was 9 cm at about 3 pm, but was -1 station. Baby's head came down over the next few hours to +1 station with caput. was OP. anterior lip remained even with some pushing. recommended she proceed with C section and she agreed. Received Ancef for + GBS 2 doses. SROM occurred about 5 pm. clear fluid. Once c section decided upon, pitocin was turned off. Consents signed. Ancef 3 grams and azithromycin 500 mg pre-op. Steven replaced and urine was quite bloody. Epidural dosed. Patient brought to OR. Vaginal and abdominal prep done. anesthesia tested and was good. Time out done. Drapes placed. Pfanensteil skin incision made and carried down to fascia which was transected bilaterally. REctus muscles dissected off inferiorly and superiorly. Perineum entered high as bladder was way up. Stretched. Ej retractor placed and rolled down. Low Transverse uterine incison made with scalpel. Uterus entered. incision stretched. baby's head OP, delivered from deep in pelvis pretty easily. Baby cried once and then we suctioned. Dried and stimulated. cord clamped and cut at [address] off to Dr. French. Did not breathe well and had to go to nursery and be on high flow O2. Placenta delivered with gentle traction. Uterus cleared of clots and debris. Did not contract great with just oxytocin, so methergine IM was given. Uterine incision was extended on both sides some. Some significant bleeders at the angles grasped with clamps. Uterus closed with running 0 Monocryl suture. Second horizontal imbricating layer placed. Extra stitches placed in left corner. She was very painful in this area. I felt around the uterus to be sure that the ureter did not feel to be in the area. Goo hemostasis was obtained. Tubes and ovaries were normal. 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 Ketamine was given. Muscle layers were examined on both side for bleeding. These were treated with bovie as needed. Fascia was closed with 0 Vicryl suture. Sub q layer was closed with 3-0 Monocryl and skin was closed with 3-0 Monocryl in subcuticular fashion. Steristrips and bandage placed. Uterus expressed. Urine was pretty clear. Patient brought back to her room in stable condition.
[2023-10-04] MEDS: ACETAMINOPHEN 500 MG TABLET PO SCH ×2 (05:20→16:45)
[2023-10-04] MEDS: KETOROLAC 30 MG/ML VIAL IVP SCH ×2 (05:21→12:25)
[2023-10-04] MEDS ORDERED: AZITHROMYCIN INJ 500 MG in SODIUM CHLORIDE 0.9% 250 ML IV SCH (09:00)
[2023-10-04 10:07] LABS: HCT - HEMATOCRIT 29.8 % (37.0-47.0); HGB - HEMOGLOBIN 9.9 g/dL (12.0-16.0); MEAN CORPUSCULAR HEMOGLOBIN 29.1 pg (27.0-31.0); MEAN CORPUSCULAR HGB CONC 33.2 g/dL (32.0-36.0); MEAN CORPUSCULAR VOLUME 87.6 fL (81.0-99.0); MEAN PLATELET VOLUME 10.4 fL (7.9-10.8); RED BLOOD COUNT 3.4 10^6/uL (4.20-5.40); RED CELL DISTRIBUTION WIDTH 13.7 % (12.0-15.0); WHITE BLOOD COUNT 14.1 x10^3/uL (4.8-10.8)
[2023-10-04 10:20] LABS: ALBUMIN 2.6 g/dL (3.2-5.5); BILIRUBIN,TOTAL 0.5 mg/dL (0.2-1.0); CALCIUM 8.6 mg/dL (8.5-10.3); CREATININE 0.6 mg/dL (0.6-1.3); POTASSIUM 3.7 mmol/L (3.5-4.5); TOTAL PROTEIN 5.1 g/dL (6.4-8.9)
[2023-10-04] MEDS: ENOXAPARIN 40 MG/0.4 ML SYRINGE SUBQ SCH (12:25)
[2023-10-04] MEDS: IRON DEXTRAN 200 MG in SODIUM CHLORIDE 0.9% 100ML 100 ML IV SCH (12:25)
[2023-10-04] MEDS: DOCUSATE SODIUM 100 MG CAPSULE PO SCH (12:25)
--- NOTE | 2023-10-04 16:37 | PROCEDURE REPORT ---
Hospitalist Procedure Note - Procedure Note Procedure Note: document made in error
[2023-10-04] MEDS ORDERED: KETOROLAC 30 MG/ML VIAL IVP SCH (19:00)
[2023-10-04] MEDS ORDERED: HYDROmorphone 0.5 MG/0.5 ML SYRINGE IVP PRN (23:10)
[2023-10-05] MEDS: IBUPROFEN 600 MG TABLET PO SCH ×4 (00:52→19:47)
[2023-10-05] MEDS: ACETAMINOPHEN 500 MG TABLET PO SCH ×3 (00:52→22:58)
[2023-10-05] MEDS: DOCUSATE SODIUM 100 MG CAPSULE PO SCH ×3 (00:53→22:58)
[2023-10-05] MEDS: IRON DEXTRAN 200 MG in SODIUM CHLORIDE 0.9% 100ML 100 ML IV SCH (09:02)
[2023-10-05] MEDS: SODIUM CHLORIDE FLUSH 0.9% 10 ML SYRINGE IVP SCH (09:02)
[2023-10-05] MEDS: FERROUS SULFATE 325 MG TABLET PO SCH (13:11)
[2023-10-05] MEDS: ENOXAPARIN 40 MG/0.4 ML SYRINGE SUBQ SCH (13:11)
--- NOTE | 2023-10-05 16:11 | PROVIDER PROGRESS NOTE ---
Subjective - Subjective Subjective: Subjective Patient reports she is doing well. Lochia appropriate. Denies heavy bleeding. Ambulating. Pelvic and abdominal pain well-controlled. Tolerating oral intake. Diet: Regular. Voiding without difficulty. Passing flatus. Denies BM. Patient is bonding with baby, and nursery this morning Breast feeding going well. Pumping Denies feeling lightheaded, dizzy or excessively fatigued. Objective General: Alert, oriented, no apparent distress. Cardiovascular: Regular rate. Regular rhythm. Lungs: No increased work of breathing. Abdomen: Uterus firm. Below umbilicus. No guarding or rebound. Extremities: No pain on palpation. No cords palpated. Distal pulses intact. Incision: Bandage in place. Assessment and Plan day 2. -Routine care -Anticipate discharge tomorrow Objective - Vital Signs/Intake & Output Vital Signs: Vital Signs x48h Temp Pulse Resp BP Pulse Ox 10/05/23 13:00 97.7 F 80 14 104/68 10/05/23 08:53 98.8 F 88 17 110/77 98 Intake & Output: Intake & Output 10/02/23 10/03/23 10/04/23 10/05/23 23:59 23:59 23:59 23:59 Intake Total 500 2426.324 7445 450 Output Total 100 1300 1300 Balance 500 1211.084 -96 -850 - Lab Results Fish Bones: 10/04/23 10:03 10/04/23 10:03
[2023-10-06] MEDS: IBUPROFEN 600 MG TABLET PO SCH ×3 (05:35→20:30)
[2023-10-06] MEDS: ACETAMINOPHEN 500 MG TABLET PO SCH ×2 (06:50→15:48)
[2023-10-06] MEDS: ENOXAPARIN 40 MG/0.4 ML SYRINGE SUBQ SCH (08:40)
[2023-10-06] MEDS: FERROUS SULFATE 325 MG TABLET PO SCH (08:41)
[2023-10-06] MEDS: DOCUSATE SODIUM 100 MG CAPSULE PO SCH ×2 (08:41→20:30)
--- NOTE | 2023-10-06 15:35 | PROVIDER PROGRESS NOTE ---
Subjective - Prog Note Date Prog Note Date: 10/06/23 Prog Note Time: 15:33 - Subjective Pt reports feeling: Improved Subjective: Pt well, lochia appropriate, + amb, + void, + diego PO, + flatus Feeding going well -- pumping / formula / working on latching. Bonding with baby FOB supportive and present. Objective - Vital Signs/Intake & Output Reviewed Vital Signs: Yes Vital Signs: Vital Signs x48h Temp Pulse Resp BP Pulse Ox 10/06/23 13:00 99.0 F 114 H 16 101/64 98 10/06/23 08:19 98.8 F 97 20 130/79 99 Intake & Output: Intake & Output 10/03/23 10/04/23 10/05/23 10/06/23 23:59 23:59 23:59 23:59 Intake Total 6713.311 5246 650 Output Total 100 1300 1300 Balance 1211.084 -96 -650 - Objective General Appearance: positive: No acute distress Eyes Bilateral: positive: Normal inspection ENT: positive: ENT inspection nml Neck: positive: Nml inspection Respiratory: positive: Chest non-tender, No respiratory distress, Breath sounds nml Cardiovascular: positive: Regular rate & rhythm, No murmur, No gallop Abdomen: positive: Non-tender, Other (fundus @ U) Back: positive: Nml inspection Skin: positive: Color nml, No rash, Warm, Dry Extremities: positive: Non-tender, Pedal edema (+1) Neurologic/Psychiatric: positive: Oriented x3 - Lab Results Fish Bones: 10/04/23 10:03 10/04/23 10:03 - Other Results/Comments Other Results/Comments: pt doing well Assessment/Plan - Problem List (1) state Impression: doing well continue to advance continue to support (2) Delivery by section Impression: doing well continue to advance continue to support INC CDI sutures (3) Anemia Impression: asymptomatic will start FeSO4 on discharge
[2023-10-07] MEDS: ACETAMINOPHEN 500 MG TABLET PO SCH ×2 (00:11→08:36)
[2023-10-07] MEDS: IBUPROFEN 600 MG TABLET PO SCH ×2 (02:31→08:35)
[2023-10-07] MEDS: DOCUSATE SODIUM 100 MG CAPSULE PO SCH (08:35)
[2023-10-07] MEDS: FERROUS SULFATE 325 MG TABLET PO SCH (08:35)
[2023-10-07] MEDS: ENOXAPARIN 40 MG/0.4 ML SYRINGE SUBQ SCH (08:37)
[2023-10-07 08:44] VITALS: BP 121/84; O2SAT 100
--- NOTE | 2023-10-07 09:23 | DISCHARGE SUMMARY ---
Discharge Summary Admit Date: 10/02/23 Discharge Date: 10/07/23 Discharging Provider: sarah Primary Care Provider: madina Code Status: Attempt Resuscitation Condition at Discharge: Good Discharge Disposition: 01 Home, Self Care - DIAGNOSES Admission Diagnoses: IUP at term labor Discharge Diagnoses with Status of Each Condition: IUP at term - resolved labor - arrest of dilation post op /post from - doing well, met all milestones - continues to work on latch anemia - on PO iron, continue. - HPI History of Present Illness: Pt well, lochia appropriate, diego PO, + void, + flat, + ambulation Feeding going well -- breast by pumping and nipple shield. Pt reports ready to go home, has safe home to return to Reviewed: discharge instructions, post- instructions, follow up instructions, precautions, precautions regarding: feeding, depression, bleeding, and anticipated post- course All questions answered Pt verbalized understanding VSS NAD Conjunctiva pink, pale sclera +S1, S2 CTAB Breasts soft, not engorged, no nipple cracking Abd soft, NT, ND Fundus firm below umbilicus INC CDI Perineum bleeding appropriate Ext: neg CCE initial H&P notes with current status: ANC c/b: 1. essential prime - s/p C/S, resolved 2. H/O DEPRESSION / ANXIETY not on meds, given [place] children's list of 99 coping mechanisms does not have a counselor - is "very shy" so hasn't had successful counseling in the past reviewed PPD/A in detail / warning signs, precautions 3. Initial BMI 41. start weekly NSTs at 36 weeks growth U/S at 32, 36 weeks. 08/14/23- EFW 227g 88% total weight gain: 23# not on ASA -- has been on lovenox post-op -- will D/C lovenox upon discharge 4. Asthma on albuterol doing well. 5. Anemia -- for PO iron upon discharge Pre- Weight:219.0 BMI: 41.53 Blood type: O+ Antibody: negative CBC: PLT 226 HCT 36.5 HGB 12.6 RUB: immune VZV: immune HBsAg: negative HepC: N-R RPR/AB-EIA: N-R HIV: N-R PAP: due GC/CT:negative HSV: oral HSV Genetic testing: declined Covid: virus in February 2023 Flu: declines RSV- 09/06/23 - ALLERGIES Allergies/Adverse Reactions: Allergies Allergy/AdvReac Type Severity Reaction Status Date / Time cillins Allergy Mild Rash Uncoded 11/13/17 16:26 - MEDICATIONS Home Medications: Ambulatory Orders Medication Instructions Recorded Confirmed Azithromycin [Zithromax] 250 mg PO DAILY #6 tablet 11/13/17 - LABS Result Diagrams: 10/04/23 10:03 10/04/23 10:03 - QUALITY (Female Hip Fx Only) Was patient sent home on osteoporosis medication?: No - FOLLOW UP Follow Up: 1 week for women's care incision post check and per peds. - TIME SPENT Time Spent in Discharge (Minutes): 30
--- NOTE | 2023-10-07 09:31 | Discharge Plan ---
Discharge Plan Problem Reviewed?: Yes Disposition: Home, Self Care Condition: Good Prescriptions: Ibuprofen [Motrin] 600 mg PO Q6HR #60 tab Ferrous Sulfate [Feosol] 325 mg PO DAILYWM #60 tab Acetaminophen [Tylenol] 1,000 mg PO Q8H #60 tab Diet: Regular Activity Restrictions: No Restrictions Shower Restrictions: No Driving Restrictions: No Weight Bearing: Full Weight Instruction Topics: Checkup Well Baby Up to 1 Month, Childbirth Breast Care, , Depression , Change Expect Parents Health Concerns: support anemia - take iron post op - incision care post - support Plan of Treatment: support anemia - take iron post op - incision care post - support Assessment: doing well, OK to D/C home. Additional Instructions or Follow Up instructions: 988 -- mental health hotline ([place] [address] of mental health) -- [facility] post support line, call or text. No Smoking: If you smoke, Please STOP! Call for help. Follow-up with: Ericka Mckinley MD [Provider Admit Priv/Credential] -
--- NOTE | 2023-10-07 15:25 | Labor Flowsheet ---
Labor Flowsheet Datetime Report Generated by CPN: 10/07/2023 15:24 Datetime: 10/04/2023 03:34 Membranes Ruptured Date/Time: 10/03/2023 17:35 Amniotic Fluid Odor: Normal Cervical Ripening Agents Other: miso Datetime: 10/03/2023 20:55 Pulse: 115 SpO2 (%): 98 LaborFlag: Labor Datetime: 10/03/2023 20:46 VITAL SIGNS NBP Sys/Lulú/Mean (mmHg): 115 : 68 : 75 Datetime: 10/03/2023 19:00 UTERINE ACTIVITY Monitor Mode: External Frequency (min): 3-4 Quality: Moderate Duration (sec): 50-70 Pattern: Normal: <= 5 Contractions in 10 Minutes Resting Tone (Palpate): Relaxed ASSESSMENT A Monitor Mode: External US FHR Baseline Rate : 145 Variability: Moderate 6-25 bpm Accelerations: 15X15 Decelerations: Variable Category: Category II Datetime: 10/03/2023 18:23 MEDICATIONS Pitocin (milliunits): Increased to @ 8 Datetime: 10/03/2023 18:02 VAGINAL EXAM Dilatation (cm): 9.0 Effacement (%): 100 Station: 2 Exam by: Mckinley Datetime: 10/03/2023 17:46 Comments: MHR tracing Datetime: 10/03/2023 17:35 Membrane Status: Ruptured Membranes Rupture Method: Spontaneous Amniotic Fluid Color: Clear Amniotic Fluid Amount: Small Datetime: 10/03/2023 17:11 Antibiotics: Start Antibiotics; Ancef IV (Gm) @ 1gm @200ml/hr Datetime: 10/03/2023 16:30 Contraction Comments: coupling noted Datetime: 10/03/2023 16:27 Antiemetics/Antacids: Zofran (mg) @ 4 Datetime: 10/03/2023 16:04 Temperature (C): 36.7 Datetime: 10/03/2023 14:58 COMMUNICATION Communication: RN at Bedside Datetime: 10/03/2023 13:32 Monitor Interventions for UA: [place] Adjusted Datetime: 10/03/2023 13:23 Patient Position/Activity: Left Lateral Datetime: 10/03/2023 12:55 Vaginal Bleeding: None Cervix, Consistency: Soft Cervix, Position: Midposition Datetime: 10/03/2023 12:00 FHR Baseline Changes: No Baseline Change Datetime: 10/03/2023 11:56 Communication Comments: With Marija Buster-Rotundo RN Datetime: 10/03/2023 11:00 Pitocin Checklist: At Least 1 Acceleration of 15 bpm x 15 Seconds in 30 Minutes or Adequate Variabi lity; No More than 1 Late Deceleration Occurred in Past 30 Minutes; No More than 2 Variable Decelerat ions > 60 Seconds in Duration and decreasing >60 bpm in 30 minutes; No More than 5 Uterine Contractio ns in 10 Minutes for any 20 Minute Interval; Uterus Palpates Soft between Contractions Datetime: 10/03/2023 10:37 I/O Interventions: Steven Cath Inserted Datetime: 10/03/2023 10:00 Epidural Procedure Other: Pump Started Datetime: 10/03/2023 09:53 Epidural Procedure: Completed Datetime: 10/03/2023 09:42 PROCEDURE TIME OUT Procedure Verify: Correct Patient Identity; Correct Side and Site are Marked; Accurate Procedure Co nsent Form; Agreement on Procedure to be Done; Correct Patient Position; Relevant Images and Results are Properly Labeled and Displayed; Addressed Need to Administer Antibiotics or Fluids for Irrigation ANESTHESIA Anesthesia Plans: Epidural Epidural Positioning: Sitting Datetime: 10/03/2023 09:36 Pain Type: Cramping; Contraction Pain Coping: Requesting Pain Medication or Epidural Provider Notified (Name): BARBARA Hawkins Aube Datetime: 10/03/2023 09:26 Nausea/Vomiting: Present Datetime: 10/03/2023 09:07 Patient Care Comments: Sitting on edge of the bed to eat breakfast Datetime: 10/03/2023 08:30 Actions for Decelerations: Side to Side Datetime: 10/03/2023 06:22 Monitor Interventions for FHR: Ultrasound Adjusted Datetime: 10/03/2023 06:05 Respirations: 20 Datetime: 10/03/2023 05:50 Medication Comments: pitocin 1mmu Datetime: 10/03/2023 04:56 PAIN Pain Scale: 2 Pain Presence: Intermittent Pain Location: Abdomen MATERNAL ASSESSMENT Level of Consciousness: Drowsy PATIENT CARE Procedures: Sterile Vag Exam Strip Reviewed by: [email or web address] Datetime: 10/03/2023 02:18 Notification Reason: Labor Status Nurse Giving Report: mknudsen SBAR Notable Communications: tachysostole noted, SVE 2cm, 100%, -3, Miso not given SBAR Follow-up: May have Ambien if pt desires. Start Pitocin around 5am Datetime: 10/03/2023 01:04 Headache: Denies RUQ Epigastric Pain: Denies Datetime: 10/02/2023 21:00 Stage of : Labor Datetime: 10/02/2023 20:57 Presentation 'A': Cephalic Datetime: 10/02/2023 20:15 Cervical Ripening Agents: Cytotec @ Datetime: 10/02/2023 19:38 Pain Assessment Comments: stes not really feeling conts, just back ache Datetime: 10/02/2023 19:33 Temperature Route: Oral
--- NOTE | 2023-10-10 20:19 | PROVIDER PROGRESS NOTE ---
Subjective - Prog Note Date Prog Note Date: 10/04/23 Prog Note Time: 11:00 - Subjective Pt reports feeling: Improved Subjective: doing well post c section. no concerns. Objective - Lab Results Fish Bones: 10/04/23 10:03 10/04/23 10:03 Assessment/Plan - Problem List (1) Encounter for induction of labor Impression: delivered now, by c section. routine care. (3) LGA (large for gestational age) fetus affecting mother, antepartum Qualifiers: Fetus number: single or unspecified fetus Qualified Code(s): O36.60X0 - Maternal care for excessive growth, unspecified trimester, not applicable or unspecified
== END 2023-10-07 14:40 | disposition home or self-care (01) | DRG 788 ==
LOC: WFO 10:54 → FBP 10:56 → WFO 12:17 → FBP 12:18
PROVIDERS: ADMIT Obstetrics & Gynecology; ATTEND Obstetrics & Gynecology
PROC: 3E033VJ Introduction of Other Hormone into Peripheral Vein, Percutaneous Approach (ICD-10-PCS; 2023-10-02)
PROC: 10D00Z1 Extraction of Products of Conception, Low, Open Approach (ICD-10-PCS; principal; 2023-10-03 21:00)
DX: O62.0 Primary inadequate contractions (principal); O99.02 Anemia complicating childbirth; Z37.0 Single live birth; O99.52 Diseases of the respiratory system complicating childbirth; O99.344 Other mental disorders complicating childbirth; F32.A Depression, unspecified; F41.9 Anxiety disorder, unspecified; Z88.0 Allergy status to penicillin; J45.20 Mild intermittent asthma, uncomplicated; O99.214 Obesity complicating childbirth; Z3A.38 38 weeks gestation of pregnancy; O99.892 Other specified diseases and conditions complicating childbirth; M54.9 Dorsalgia, unspecified; M79.604 Pain in right leg; O99.824 Streptococcus B carrier state complicating childbirth; O36.63X0 Maternal care for excessive fetal growth, third trimester, not applicable or unspecified
CPT/HCPCS: 36415; 80053; 85025; 85027; 86850; 86900; 86901; A9270; J0131; J1170; J1650; J1750; J2210; J2274; J3490; J7120